=== PATIENT | female | born 1995 | race Caucasian/White ===

== ENCOUNTER 2016-10-31 16:33 | Emergency (ER) | payer OTHER ==
[~2016-10-31] VITALS: Ht 162.6 cm; Wt 57.2 kg
[2016-10-31 16:36] VITALS: TEMP 36.8; Ht 162.6 cm; Wt 57.2 kg
[2016-10-31 17:03] LABS: BASO % 0.5 %; BASO ABS # 0.03 K/uL (0-0.2); COMPLETE YES; EOS % 2.6 %; HEMATOCRIT 42.4 % (37-47); IG% 0.2 %; LYMPH % 32.7 %; LYMPH ABS # 2.13 K/uL (1.2-3.4); MEAN CELL VOLUME 87.1 fL (80-100); MEAN CORPUSCULAR HEMOGLOBIN 29.4 pg (25-34); MEAN CORPUSCULAR HGB CONC 33.7 g/dl (32-36); MEAN PLATELET VOLUME 8.8 fL (7.4-10.4); MONO % 8.3 %; NEUT % 55.7 %; PLATELET COUNT 289 K/uL (130-400); RED BLOOD COUNT 4.87 M/uL (4.2-5.4); WHITE BLOOD COUNT 6.52 K/uL (4.8-10.8)
--- NOTE | 2016-10-31 17:25 | DIAGNOSTIC IMAGING REPORT ---
RIGHT FOOT MIN 3 VIEWS ROUTINE CLINICAL HISTORY: right foot swelling Right pain. Edema. COMPARISON: None. DISCUSSION: The bones and joint spaces appear intact. There is no evidence of fracture, dislocation or bony disease. Mild soft tissue edema IMPRESSION: Mild soft tissue edema. No acute bony abnormality. The above report was generated using voice recognition software. It may contain grammatical, syntax or spelling errors. Electronically signed by: Josiah De Leon M.D. 10/31/2016 5:23 PM Dictated Date/Time: 10/31/2016 5:23 PM
[2016-10-31 17:27] LABS: BUN/CREATININE RATIO 6.1 (10-20); C-REACTIVE PROTEIN 1.35 mg/dl (0-0.29); CALCIUM 9.2 mg/dl (8.5-10.1); CREATININE 0.93 mg/dl (0.60-1.20); POTASSIUM 4.2 mmol/L (3.5-5.1)
[2016-10-31] MEDS ORDERED: BCPILLS PO (17:41)
[2016-10-31] MEDS ORDERED: CEPH500C2 PO (17:43)
[2016-10-31] MEDS ORDERED: SULF800T23 PO (17:43)
[2016-10-31] MEDS ORDERED: SULFAMETHOXAZOLE/TRIMETHOPRIM DS 800/160MG TAB PO ONE (17:45)
[2016-10-31] MEDS ORDERED: CEPHALEXIN MONOHYDRATE 250 MG CAP PO ONE (17:45)
--- NOTE | 2016-10-31 17:54 | EMERGENCY ROOM VISIT NOTE ---
History Report prepared by Yvonne: Alicia Mcguire Under the Supervision of: Dr. Issa Martinez D.O. First contact with patient: 16:41 Chief Complaint: SWELLING TO EXTREMITY Stated Complaint: THORN IN RT FOOT YESTERDAY, WON'T STOP SWELLING History of Present Illness The patient is a 21 year old female who presents to the Emergency Room with complaints of worsening right foot swelling starting last night. She pulled out a tear shaped object from her foot yesterday. She suspects it was a thorn but she is not sure. She is unsure if it was a stinger or not. She also reports severe itchiness and erythema. She currently denies any pain. She denies fevers , chills, or any other complaints. Source of History: patient Onset: last night Position: foot (right) Symptom Intensity: No pain Quality: other (swelling, erythema, and itchiness) Timing: worsening Associated Symptoms: No fevers, No chills Review of Systems See HPI for pertinent positives & negatives. A total of 6 systems reviewed and were otherwise negative. Past Medical & Surgical Surgical Problems: (1) H/O wisdom tooth extraction Family History Patient reports no known family medical history. Social History Smoking Status: Never Smoker Alcohol Use: none Marital Status: single Occupation Status: student Current/Historical Medications Scheduled Control Pills ( Control Pills), 1 TAB PO DAILY Cephalexin Monohydrate (Keflex), 500 MG PO QID Sulfa/Trimethoprim (Bactrim Ds 800MG/160MG), 1 TAB PO BID Allergies Coded Allergies: No Known Allergies (Unverified , 10/31/16) Physical Exam Vital Signs Date Time Temp Pulse Resp B/P (MAP) Pulse Ox O2 Delivery O2 Flow Rate FiO2 10/31/16 16:36 36.8 82 16 108/72 100 Room Air Physical Exam GENERAL: Patient is awake, alert, and in no acute distress. Patient is resting comfortably and showing no signs of anxiety EYES: The conjunctivae are clear. The pupils are round and reactive. EARS, NOSE, MOUTH AND THROAT: The nose is without any evidence of any deformity. Mucous membranes are moist tongue is midline NECK: The neck is nontender and supple. RESPIRATORY: Normal respiratory effort is noted there is no evidence of wheezing rhonchi or rales CARDIOVASCULAR: Regular rate and rhythm noted there no murmurs rubs or gallops normal S1 normal S2 GASTROINTESTINAL: The abdomen is soft. Bowel sounds are present in all quadrants. Abdomen is nontender MUSCULOSKELETAL/EXTREMITIES: There is no evidence of gross deformity full range of motion is noted in the hips and shoulders SKIN: Puncture wound on the lateral right foot with surrounding erythema, no fluctuance or discharge, no lymphangitic streaking appreciated. NEUROLOGIC: Patient is awake alert and oriented x3 Medical Decision & Procedures ER Provider Diagnostic Interpretation: X-ray results as stated below per interpretation by me and the radiologist. RIGHT FOOT MIN 3 VIEWS ROUTINE CLINICAL HISTORY: right foot swelling Right pain. Edema. COMPARISON: None. DISCUSSION: The bones and joint spaces appear intact. There is no evidence of fracture, dislocation or bony disease. Mild soft tissue edema IMPRESSION: Mild soft tissue edema. No acute bony abnormality. The above report was generated using voice recognition software. It may contain grammatical, syntax or spelling errors. Electronically signed by: Josiah De Leon M.D. 10/31/2016 5:23 PM Dictated Date/Time: 10/31/2016 5:23 PM Laboratory Results 10/31/16 16:55 Red Blood Count 4.87, Mean Corpuscular Volume 87.1, Mean Corpuscular Hemoglobin 29.4, Mean Corpuscular Hemoglobin Concent 33.7, Mean Platelet Volume 8.8, Neutrophils (%) (Auto) 55.7, Lymphocytes (%) (Auto) 32.7, Monocytes (%) (Auto) 8.3, Eosinophils (%) (Auto) 2.6, Basophils (%) (Auto) 0.5, Neutrophils # (Auto) 3.64, Lymphocytes # (Auto) 2.13, Monocytes # (Auto) 0.54, Eosinophils # (Auto) 0.17, Basophils # (Auto) 0.03 10/31/16 16:55 Test 10/31/16 16:55 White Blood Count 6.52 K/uL (4.8-10.8) Red Blood Count 4.87 M/uL (4.2-5.4) Hemoglobin 14.3 g/dL (12.0-16.0) Hematocrit 42.4 % (37-47) Mean Corpuscular Volume 87.1 fL (80-100) Mean Corpuscular Hemoglobin 29.4 pg (25-34) Mean Corpuscular Hemoglobin Concent 33.7 g/dl (32-36) Platelet Count 289 K/uL (130-400) Mean Platelet Volume 8.8 fL (7.4-10.4) Neutrophils (%) (Auto) 55.7 % Lymphocytes (%) (Auto) 32.7 % Monocytes (%) (Auto) 8.3 % Eosinophils (%) (Auto) 2.6 % Basophils (%) (Auto) 0.5 % Neutrophils # (Auto) 3.64 K/uL (1.4-6.5) Lymphocytes # (Auto) 2.13 K/uL (1.2-3.4) Monocytes # (Auto) 0.54 K/uL (0.11-0.59) Eosinophils # (Auto) 0.17 K/uL (0-0.5) Basophils # (Auto) 0.03 K/uL (0-0.2) RDW Standard Deviation 39.9 fL (36.4-46.3) RDW Coefficient of Variation 12.4 % (11.5-14.5) Immature Granulocyte % (Auto) 0.2 % Immature Granulocyte # (Auto) 0.01 K/uL (0.00-0.02) Erythrocyte Sedimentation Rate 10 mm/hr (0-21) Anion Gap 3.0 mmol/L (3-11) Est Creatinine Clear Calc Drug Dose 83.4 ml/min Estimated GFR () 102.5 Estimated GFR (Non- 88.5 BUN/Creatinine Ratio 6.1 (10-20) Calcium Level 9.2 mg/dl (8.5-10.1) C-Reactive Protein 1.35 mg/dl (0-0.29) Laboratory results per my review. Medications Administered Medications (Trade) Dose Ordered Sig/Omar Route Start Time Stop Time Status Last Admin Dose Admin Cephalexin Monohydrate (Keflex Cap) 500 mg NOW ONCE PO 10/31/16 17:45 10/31/16 17:46 DC 10/31/16 18:00 500 MG Trimethoprim/ Sulfamethoxazole (Septra Ds 800/ 160MG Tab) 1 tab NOW ONCE PO 10/31/16 17:45 10/31/16 17:46 DC 10/31/16 17:59 1 TAB ED Course 1641: The patient was evaluated in room C01B. A complete history and physical examination were performed. 1745: Trimethoprim/Sulfamethoxazole 1 tab PO, Keflex Cap 500 mg PO 1730: Upon reevaluation, the patient is resting comfortably. I discussed the results and treatment plan with her. She verbalized agreement of the treatment plan. She was discharged home. Medical Decision Prior records reviewed and summarized as above. Triage Nursing notes reviewed. The patient's history was concerning for swelling and redness of the skin. Differential diagnosis: Etiologies such as cellulitis, abscess, MRSA infection, DVT, necrotizing fasciitis, dermatitis, drug eruption, as well as others were entertained.. The patient is a 21-year-old female who presented to the emergency department for an evaluation of swelling and redness of her right foot. The patient describes a puncture wound that occurred with a thorn over the last few days. Her physical exam appear to be consistent with erythema and swelling over the right foot. There was a puncture wound noted over the lateral aspect. She does not remember this being from a specific envenomation or a sting although the appearance could be similar in a local allergic reaction. The patient's laboratory results could be consistent with inflammation. I discussed the patient's laboratory radiographic studies with her. She was started on a course of antibiotic. I also advised that she use Benadryl as directed for erythema and keep her foot elevated as much as possible. She was encouraged to follow-up with her primary care physician for reevaluation within the next few days or return to the emergency department immediately if symptoms change worsen or the need arises. Medication Reconcilliation Current Medication List: was personally reviewed by me Blood Pressure Screening Patient's blood pressure: Normal blood pressure Impression Primary Impression: Cellulitis of right foot Scribe Attestation The scribe's documentation has been prepared under my direction and personally reviewed by me in its entirety. I confirm that the note above accurately reflects all work, treatment, procedures, and medical decision making performed by me. Departure Information Dispostion Home / Self-Care Prescriptions Cephalexin Monohydrate (KEFLEX) 500 Mg Cap 500 MG PO QID, #28 CAP Prov: Issa Martinez, DO 10/31/16 Sulfa/Trimethoprim (Bactrim Ds 800MG/160MG) Tab 1 TAB PO BID, #14 TAB Prov: Issa Martinez, DO 10/31/16 Referrals No Doctor, Assigned (PCP) Forms HOME CARE DOCUMENTATION FORM, IMPORTANT VISIT INFORMATION, WORK / SCHOOL INSTRUCTIONS Patient Instructions Cellulitis Kaden, [facility] Additional Instructions Follow-up with your family for reevaluation. Continue all medications as prescribed. Continue to put triple antibiotic ointment to the area 2-3 times a day. Continue using Motrin and Tylenol for pain.
[2016-10-31 18:10] VITALS: BP 112/78; PULSE 69; O2SAT 100
== END 2016-10-31 18:12 | disposition home or self-care (01) ==
LOC: C.EDB 16:35 → C.EDC 18:12
DX: L03.115 Cellulitis of right lower limb (principal); Z79.3 Long term (current) use of hormonal contraceptives